=== PATIENT | male | born 1960 | race Two or more races ===

== ENCOUNTER 2024-04-04 12:10 | Day surgery (SDC) | payer OTHER, MEDICAID, SELFPAY ==
[2024-04-04] VITALS (7 sets, daily range): BP systolic 123–156; BP diastolic 76–103; PULSE 65–82; RESP 14–20; TEMP 36.6–36.7; O2SAT 91–98; BMI 38.2
[2024-04-04] MEDS: SODIUM CHLORIDE 0.9% 250 ML 250 ML 125 ML IV (13:49)
[2024-04-04] MEDS: DiphenhydrAMINE INJ 50 MG/ML VIAL 25 MG IV (13:52)
[2024-04-04] MEDS: ONDANSETRON INJ 2 MG/ML INJ 2 ML 4 MG IV (13:52)
[2024-04-04] MEDS: fentaNYL CIT INJ 50 mCg/ML AMP 2ML (ASD USE ONLY) 25 MCG IV (13:54)
[2024-04-04] MEDS: MIDAZOLAM INJ 1 MG/ML VIAL 2 ML (ASD USE ONLY) 2 MG IV (13:54)
--- NOTE | 2024-04-04 16:19 | SUR.PHASEII ---
1410: Pt received for recovery. Report from Nubia HERRERA. Pt sleepy. Easily aroused. Resp even, unlabored. VS stable. Denies pain. 1435: Pt more awake, alert. Sitting up tolerating po fluids with no difficulty swallowing and no n/v. 1500: Pt fully awake, oriented x3. Pt was assisted to restroom. Ambulation steady. Pt and friend stated understanding of discharge instructions. Pt discharged from [facility] in stable condition.
== END 2024-04-04 15:00 | disposition home or self-care (01) ==
PROVIDERS: PCP Family Medicine; Referring Provider Specialist; Visit Provider Specialist
PROC: 0DBE8ZX Excision of Large Intestine, Via Natural or Artificial Opening Endoscopic, Diagnostic (ICD-10-PCS; CPT 45380; principal; 2024-04-04 13:00)
DX: Z12.11 Encounter for screening for malignant neoplasm of colon (principal); K64.9 Unspecified hemorrhoids; K57.30 Diverticulosis of large intestine without perforation or abscess without bleeding
CPT/HCPCS: 45378; J1200; J2250; J2405; J3010; J7050

== ENCOUNTER 2024-09-11 07:45 | Day surgery (SDC) | payer OTHER, MEDICAID, SELFPAY ==
--- NOTE | 2024-09-10 07:00 | EKG_ITS ---
[facility] Test Date: 2024-09-10 Pat Name: WALLACE CELIS Department: Room: - Gender: Male [employer] Shift Supervisor: ALISIA : 1960 Requested By: Shavon Raygoza Order Number: [id number] Reading MD: Shavon Raygoza Measurements Intervals [place] Rate: 73 P: 45 [place]: 139 QRS: 26 QRSD: 113 T: 77 QT: 369 QTc: 408 Interpretive Statements SINUS RHYTHM MODERATE INTRAVENTRICULAR CONDUCTION DELAY [110+ ms QRS DURATION] No previous ECG available for comparison /[id number]/[email or web address]/[id number]
[2024-09-10 09:30] VITALS: BMI 38.1
[2024-09-10 11:16] LABS: Basophils # (Auto) 0.0 Thou/mm3 (0.0-0.2); Basophils % (Auto) 1 % (0-2.5); Eosinophils # (Auto) 0.4 Thou/mm3 (0.0-0.5); Eosinophils % (Auto) 4 % (0-10); Hematocrit 47.2 % (41.0-53.0); Hemoglobin 16.1 g/dL (13.5-16.0); Immature Granulocytes Auto 0.02 Thou/mm3 (0.00-0.00); Lymphocytes # (Auto) 2.8 Thou/mm3 (1.0-4.8); Lymphocytes % (Auto) 33 % (10-50); Mean Corpuscular HGB Conc 34.1 g/dl (31.0-37.0); Mean Corpuscular Hemoglobin 30.8 pg (25.0-35.0); Mean Corpuscular Volume 90 fL (80-100); Monocytes # (Auto) 0.6 Thou/mm3 (0.0-0.8); Monocytes % (Auto) 7 % (0-12); Neutrophils # (Auto) 4.8 Thou/mm3 (1.8-7.7); Neutrophils % (Auto) 56 % (37-80); Nucleated Red Blood Cell # 0.00 Thou/mm3 (0.00-0.00); Nucleated Red Blood Cell % 0 /100 WBC (0); Platelet Count 434 Thou/mm3 (140-440); RDW Standard Deviation 44.6 fL (35.1-43.9); Red Blood Count 5.23 Miln/mm3 (4.50-5.90); White Blood Count 8.7 Thou/mm3 (3.8-10.6)
[2024-09-10 11:25] LABS: Alanine Aminotransferase 13 U/L (10-49); Albumin, Serum 4.5 gm/dL (3.4-4.8); Albumin/Globulin Ratio 1.5 (1.2-2.2); Alkaline Phosphatase 68 U/L (46-116); Anion Gap 8 (7-16); Aspartate Amino Transferase 16 U/L (0-34); BUN/Creatinine Ratio 28 Ratio (12-20); Bilirubin,Total 1.1 mg/dL (0.3-1.2); Blood Urea Nitrogen 22 mg/dL (9-23); Calcium 9.6 mg/dL (8.3-10.6); Calcium (Corrected) 9.6 mg/dL (8.5-10.1); Carbon Dioxide 30.0 mMol/L (20.0-31.0); Chloride 102 mMol/L (98-107); Creatinine (Component) 0.8 mg/dL (0.6-1.3); Estimated Creatinine Clearance 124.7 mL/min (>60); Globulin 3.0 gm/dL (2.3-3.5); Glucose 110 mg/dL (74-106); Osmolality,Calculated 283 (275-295); Potassium 4.3 mMol/L (3.4-5.1); Sodium 140 mMol/L (136-145); Total Protein 7.5 gm/dL (5.7-8.2); eGFR > 60 See Note
[2024-09-11] VITALS (8 sets, daily range): BP systolic 129–153; BP diastolic 81–90; PULSE 60–77; RESP 12–20; TEMP 36.3–36.6; O2SAT 93–99; BMI 38.0
[2024-09-11] MEDS: RINGERS LACTATED 1000 ML 1,000 ML 20 ML IV (08:15)
--- NOTE | 2024-09-11 09:36 | PD.SUROPNT ---
Date of Procedure 09/11/24 Pre Op Diagnosis Incarcerated umbilical hernia Post Op Diagnosis Incarcerated umbilical hernia Procedure Laparoscopic assisted repair of incarcerated umbilical hernia with mesh Findings Approximately 3.5 cm umbilical hernia defect with incarcerated omentum Procedure Description Patient brought into the operating room in supine position. After administration of general orotracheal anesthesia, patient's abdomen prepped and draped in standard surgical manner. A 5 mm incision was made in left upper quadrant and Veress needle was inserted, pneumoperitoneum was obtained to 15 mmHg. The Veress needle was removed and a 5 mm trocar was placed. Laparoscopic camera was inserted, under direct visualization a laparoscopic camera a 5 mm trocar placed in left lower quadrant and additional 5 mm trocar placed in right lower quadrant. The abdomen was inspected and patient was noted to have an incarcerated umbilical hernia with omentum being incarcerated within the hernia sac. The hernia sac was excised with Harmonic scalpel laparoscopically and the omentum was reduced. At this point approximately 3 cm semicircular incision was made superior to the umbilicus and dissection was carried to subcutaneous tissue. The hernia sac was circumferentially dissected off surrounding tissue and excised from surrounding abdominal fascia. The fascia was cleared from overlying tissue. The defect was approximately 3.5 cm in diameter. A 4 x 6 elliptical shape proceed mesh was used to cover the defect. 2 tacking sutures using 0 Ethibond placed the 2 ends of the mesh and the mesh was placed inside the abdominal cavity through the hernia defect. The defect was closed with interrupted sutures using 0 Ethibond. The umbilicus was tacked into the underlying abdominal fascia was 2-0 Vicryl suture in subcutaneous tissue closed with interrupted sutures of 2-0 Vicryl. The abdomen was once again insufflated. 2 tacking sutures of the 2 ends of the mesh were retrieved through the previously marked abdominal wall site. Sutures were tightened and the mesh was further secured into anterior abdominal wall with secure strap tacking device. The mesh was covering the defect with at least 4 cm circumferential margin. Hemostasis was adequate and satisfactory. Instruments and trocars removed, pneumoperitoneum was evacuated and the incisions closed 4-0 Monocryl subcuticular fashion. Instruments, needles and sponge counts were reported to be correct ?2 patient tolerated the procedure well. Patient was extubated, breathing spontaneously and without difficulty and was transferred to postanesthesia care in stable condition. Anesthesia GETA and local Pathology / specimen Other (Hernia sac and contents) Estimated Blood Loss 10 Condition Stable Disposition PACU Surgeon Shavon Raygoza MD Surgical Staff Operation Date: 09/11/24 10:15 Case Staff Anesthesiologist: Chris Stephens RN First Assistant: Shila Welsh
--- NOTE | 2024-09-11 09:47 | SUR.PHASEI ---
0947: Pt. AAOx4, vitals stable, breathing unlabored, no complaint of pain or nausea, x6 dressing to ABD CDI, no active bleed noted, report recieved from MD Stephens and Daja HERRERA.
[2024-09-11] MEDS: HYDROmorphone INJ 2 MG/ML VIAL 0.4 MG IVP ×4 (09:56→10:23)
--- NOTE | 2024-09-11 10:55 | SUR.PHASEII ---
1055: Pt. AAOx4, vitals stable, breathing unlabored, no complaint of pain or nausea, dressing to ABD CDI, no active bleed noted, ABD Binder in place, pt. tolerated sips of soda well, pt. ambulated to wheelchair with steady gait and no assist, no complications. Gave discharge instructions to the pt. and his ride, both verbalized understanding and had no further questions. Pt. left with all personal belongings.
== END 2024-09-11 10:55 | disposition home or self-care (01) ==
PROVIDERS: Anesthesiology; PCP Family Medicine; Referring Provider Surgery; Visit Provider Surgery
PROC: 0WQF4ZZ Repair Abdominal Wall, Percutaneous Endoscopic Approach (ICD-10-PCS; CPT 49594; principal; 2024-09-11 10:15)
DX: K42.0 Umbilical hernia with obstruction, without gangrene (principal); Z01.810 Encounter for preprocedural cardiovascular examination
CPT/HCPCS: 49594; 36415; 80053; 85025; 93005; A4217; A4649; C1781; J0131; J0690; J1100; J1171; J1885; J2250; J2405; J2704; J3010; J3490; J7120

== ENCOUNTER 2025-01-15 11:55 | Day surgery (SDC) | payer OTHER, MEDICAID, SELFPAY ==
[2025-01-14 08:44] VITALS: BMI 36.1
[2025-01-14 09:39] LABS: Basophils # (Auto) 0.1 Thou/mm3 (0.0-0.2); Basophils % (Auto) 1 % (0-2.5); Eosinophils # (Auto) 0.4 Thou/mm3 (0.0-0.5); Eosinophils % (Auto) 4 % (0-10); Hematocrit 46.7 % (41.0-53.0); Hemoglobin 15.9 g/dL (13.5-16.0); Immature Granulocytes Auto 0.01 Thou/mm3 (0.00-0.00); Lymphocytes # (Auto) 2.5 Thou/mm3 (1.0-4.8); Lymphocytes % (Auto) 30 % (10-50); Mean Corpuscular HGB Conc 34.0 g/dl (31.0-37.0); Mean Corpuscular Hemoglobin 31.7 pg (25.0-35.0); Mean Corpuscular Volume 93 fL (80-100); Monocytes # (Auto) 0.6 Thou/mm3 (0.0-0.8); Monocytes % (Auto) 7 % (0-12); Neutrophils # (Auto) 4.9 Thou/mm3 (1.8-7.7); Neutrophils % (Auto) 58 % (37-80); Nucleated Red Blood Cell # 0.00 Thou/mm3 (0.00-0.00); Nucleated Red Blood Cell % 0 /100 WBC (0); Platelet Count 373 Thou/mm3 (140-440); RDW Standard Deviation 45.2 fL (35.1-43.9); Red Blood Count 5.02 Miln/mm3 (4.50-5.90); White Blood Count 8.4 Thou/mm3 (3.8-10.6)
[2025-01-14 09:45] LABS: INR 1.0 (0.9-1.3); Partial Thromboplastin Time 31.3 Seconds (22.0-36.0); Prothrombin Time 10.5 Seconds (9.0-12.2)
[2025-01-14 09:55] LABS: Alanine Aminotransferase 13 U/L (10-49); Albumin, Serum 4.7 gm/dL (3.4-4.8); Albumin/Globulin Ratio 2.2 (1.2-2.2); Alkaline Phosphatase 74 U/L (46-116); Anion Gap 11 (7-16); Aspartate Amino Transferase 16 U/L (0-34); BUN/Creatinine Ratio 21 Ratio (12-20); Bilirubin,Total 0.9 mg/dL (0.3-1.2); Blood Urea Nitrogen 15 mg/dL (9-23); Calcium 9.3 mg/dL (8.3-10.6); Calcium (Corrected) 9.3 mg/dL (8.5-10.1); Carbon Dioxide 29.4 mMol/L (20.0-31.0); Chloride 102 mMol/L (98-107); Creatinine (Component) 0.7 mg/dL (0.6-1.3); Estimated Creatinine Clearance 142.6 mL/min (>60); Globulin 2.1 gm/dL (2.3-3.5); Glucose 102 mg/dL (74-106); Osmolality,Calculated 283 (275-295); Potassium 3.6 mMol/L (3.4-5.1); Sodium 142 mMol/L (136-145); Total Protein 6.8 gm/dL (5.7-8.2); eGFR > 60 See Note
[2025-01-15] VITALS (7 sets, daily range): BP systolic 104–129; BP diastolic 65–79; PULSE 66–88; RESP 15–20; TEMP 36.2–36.9; O2SAT 92–96; BMI 36.8
[2025-01-15] MEDS: RINGERS LACTATED 1000 ML 1,000 ML 20 ML IV (13:17)
--- NOTE | 2025-01-15 15:25 | PD.SUROPNT ---
Date of Procedure 01/15/25 Pre Op Diagnosis Symptomatic varicose veins right lower extremity Post Op Diagnosis Same as pre-op diagnosis Procedure Varicose vein excisions right lower extremity through 23 separate incisions Findings All marked varicose veins were successfully removed or disrupted Procedure Description Symptomatic varicose veins right lower extremity Anesthesia other (Laryngeal mask anesthesia) Implants Implants comments: None Pathology / specimen Other (Varicose veins right lower extremity) Pathology comment: Varicose veins right lower extremity Estimated Blood Loss 30 Condition Stable Disposition PACU Surgeon Jovanni Samuel MD Surgical Staff Operation Date: 01/15/25 15:00 Case Staff Anesthesiologist: Axel Jensen RN First Assistant: Helen Loredo
--- NOTE | 2025-01-15 15:35 | SUR.PHASEI ---
1535: Pt. wakes to name then drifts back to sleep, vitals stable, breathing unlabored, no complaint of pain or nausea, dressing to right leg CDI, no active bleed noted, report received from Daja HERRERA and MD Jensen.
--- NOTE | 2025-01-15 16:30 | SUR.PHASEII ---
1630: Pt. AAOx4, vitals stable, breathing unlabored, no complaint of pain or nausea, dressing to right leg CDI, had pt. march in place for 2 minutes while assessing for an active bleed, no active bleed noted, pt. tolerated sips of water well, pt. ambulated to wheelchair with steady gait and no assist, no complications. Gave discharge instructions to the pt. and his ride, both verbalized understanding and had no further questions. Pt. left with all personal belongings.
== END 2025-01-15 16:30 | disposition home or self-care (01) ==
PROVIDERS: Anesthesiology; Referring Provider Surgery Vascular Surgery; Visit Provider Surgery Vascular Surgery
PROC: (CPT 36475; principal; 2025-01-15 14:45)
DX: I83.811 Varicose veins of right lower extremity with pain (principal)
CPT/HCPCS: 37766; 36415; 80053; 85025; 85610; 85730; A4217; A4649; C1894; J0131; J1100; J1885; J2250; J2371; J2405; J2704; J3010; J3490; J7050; J7120